=== PATIENT | male | born 1950 | race Caucasian/White ===

== ENCOUNTER → 2018-12-20 | Outpatient (REF) | payer OTHER | END | disposition home or self-care (01) | DRG 554 | LOC: DI 10:53 | PROVIDERS: ATTEND Podiatrist Foot & Ankle Surgery | DX: M13.871 Other specified arthritis, right ankle and foot (principal) ==

== ENCOUNTER 2019-07-26 18:41 | Emergency (ER) | payer OTHER ==
[~2019-07-26] VITALS: Ht 182.9 cm; Wt 91.0 kg
[2019-07-26] MEDS ORDERED: AMLODIPINE BESYL5 MG PO (18:53)
[2019-07-26] MEDS ORDERED: ENALAPRIL10 MG PO (18:53)
[2019-07-26] MEDS ORDERED: PROTONIX40 M2 PO (18:53)
[2019-07-26] MEDS ORDERED: RAPAFLO8 MG PO (18:53)
[2019-07-26] MEDS ORDERED: PROVENTIL108 MCG/AC IN (20:11)
[2019-07-26] MEDS ORDERED: KEFLEX500 MG PO (20:11)
[2019-07-26 20:23] LABS: URINE BILIRUBIN - DIPSTICK NEGATIVE (NEGATIVE); URINE BLOOD DIPSTICK NEGATIVE (NEGATIVE); URINE COLOR YELLOW; URINE GLUCOSE - DIPSTICK NEGATIVE (NEGATIVE); URINE KETONE NEGATIVE (NEGATIVE); URINE LEUK ESTERASE NEGATIVE (NEGATIVE); URINE NITRITE - DIPSTICK NEGATIVE (Negative); URINE PH 5.5 (4.5-8.0); URINE PROTEIN - DIPSTICK NEGATIVE (NEG-TRACE); URINE UROBILINOGEN - DIPSTICK 0.2 E.U./dL (0.2)
[2019-07-26 20:30] VITALS: BP 132/78
== END 2019-07-26 20:30 | disposition home or self-care (01) | DRG 153 ==
LOC: ED 18:41
DX: J02.0 Streptococcal pharyngitis (principal); J40 Bronchitis, not specified as acute or chronic; C91.10 Chronic lymphocytic leukemia of B-cell type not having achieved remission; I10 Essential (primary) hypertension; R73.03 Prediabetes

== ENCOUNTER 2019-07-31 10:22 | Observation (INO) | payer OTHER ==
[~2019-07-31] VITALS: Ht 182.9 cm; Wt 89.2 kg
[~2019-07-31 10:22] MED LIST: AMLODIPINE BESYL5 MG PO; ENALAPRIL10 MG PO; KEFLEX500 MG PO; PROTONIX40 M2 PO; PROVENTIL108 MCG/AC IN; RAPAFLO8 MG PO
--- NOTE | 2019-07-31 10:35 | NUR ---
PATIENT AMBULATED TO ROOM WITH STEADY GAIT AND PHYSICINA AT BEDSIDE FOR EVAL
[2019-07-31 11:05] LABS: HEMATOCRIT 45.8 % (39.0-50.0); HEMOGLOBIN 15.4 g/dl (14.0-18.0); MEAN CELL VOLUME 88.9 fL CALC (80.0-100.0); MEAN CORPUSCULAR HGB 29.9 pG CALC (26.0-32.0); MEAN CORPUSCULAR HGB CONC 33.6 g/L CALC (32.0-36.0); NEUT# 1.79 thou/uL (1.82-7.42); RED BLOOD COUNT 5.15 mill/uL (4.70-6.10); RED CELL DISTRI WIDTH 13.5 % (11.5-15.5)
--- NOTE | 2019-07-31 11:05 | NUR ---
PT RESTING ON STRETCHER; PT DENIES ANY ADDITIONAL SOB; VSS
[2019-07-31 11:25] LABS: ALBUMIN 4.5 g/dL (3.2-5.0); ALKALINE PHOSPHATASE 121 u/l (38-126); ANION GAP 13 (6-22 (CALC)); BILIRUBIN, TOTAL 0.9 mg/dL (0.0-1.4); BUN 12 mg/dL (8-23); BUN/CREATININE RATIO 16 (12-20 (CALC)); CARBON DIOXIDE 28 mmol/l (22-30); CHLORIDE 100 mmol/l (95-108); CREATININE 0.7 mg/dL (0.7-1.3); GFR > 60 ML/MIN (>=60 (CALC)); GFR FOR AFR.AMER. > 60 ML/MIN (>=60 (CALC)); POTASSIUM 4.5 mmol/l (3.5-5.1); SGOT/AST 57 u/l (19-48); SODIUM 137 mmol/l (137-146); TOTAL PROTEIN 7.3 g/dL (6.3-8.2)
--- NOTE | 2019-07-31 12:01 | NUR ---
PT RESTING ON STRETCHER; NO S/S OF SOB NOTED; BLANKET GIVEN; VSS; WILL CONTINUE TO MONITOR
--- NOTE | 2019-07-31 12:55 | NUR ---
PT RECIEVING BREATHING TX AT THIS TIME; PT TOLERATING WELL; IV ROCEPHIN INFUSING TO RAC; IN S/S OF INFLITRATION NOTED
--- NOTE | 2019-07-31 13:45 | NUR ---
PT RESTING ON STRETCHER; NO S/S OF DISTRESS NOTED; VSS
--- NOTE | 2019-07-31 14:26 | NUR ---
PT RESTING ON STRECHER; AWAITING ADMISSION ORDERS; PT ADVISED OF WAIT TIME
--- NOTE | 2019-07-31 14:58 | NUR ---
REPORT CALLED TO FELICITY MONTEIRO
--- NOTE | 2019-07-31 15:11 | NUR ---
PT TO MEDSURG VIA WC IN STABLE CONDITION
[2019-07-31 15:12] VITALS: BP 165/66
--- NOTE | 2019-07-31 15:12 | NUR ---
PT CAME FROM ER VIA WHEELCHAIR BY TARI. NOTIFIED PAPI COLES RE: PT BP 165/66 AND PT CONCERNS OF POC. SHE STATED WILL BE SEEING PT SOON.
--- NOTE | 2019-07-31 16:05 | NUR ---
ASSESSMENT DONE . PT IS SITTING IN THE SIDE OF THE BED. PT IS A&O X3 .TELE IN PLACE. LUNGS SOUND WHEEZE WITH A DRY COUGH. #20 RAC THAT APPEARS HEALTHY. SAFETY PRECAUTIONS REINFORCED AND CALL LIGHT IN REACH.
[2019-07-31 16:37] VITALS: BP 148/75
[2019-07-31 17:39] LABS: URINE BILIRUBIN - DIPSTICK NEGATIVE (NEGATIVE); URINE BLOOD DIPSTICK NEGATIVE (NEGATIVE); URINE COLOR YELLOW; URINE GLUCOSE - DIPSTICK NEGATIVE (NEGATIVE); URINE KETONE 15 mg/dL (NEGATIVE); URINE LEUK ESTERASE NEGATIVE (NEGATIVE); URINE NITRITE - DIPSTICK NEGATIVE (Negative); URINE PH 5.5 (4.5-8.0); URINE PROTEIN - DIPSTICK NEGATIVE (NEG-TRACE); URINE UROBILINOGEN - DIPSTICK 0.2 E.U./dL (0.2)
[2019-07-31 19:25] VITALS: BP 137/74
--- NOTE | 2019-07-31 19:30 | NUR ---
PATIENT RESTING IN BED AT THIS TIME-AWAKE ALERT AND ORIENTEDX3.PERSISTANT NON-PRODUCTIVE COUGH NOTED. TELE MONITOR IN PLACE. IV SITE TO RIGHT AC INTACT-REMAINS HEALTHY AT THIS TIME AND IS SALINE LOCK. NO COMPLAINTS AT THIS TIME. SAFETY PRECAUTIONS REINFORCED. CALL LIGHT IN REACH. WILL CONT TO MONITOR.
--- NOTE | 2019-07-31 22:08 | NUR ---
PATIENT APPEARS SLEEPING POSITIONED ON LEFT SIDE AT THIS TIME. RESP ARE EVEN AND UNLABORED AT THIS TIME. CALL LIGHT IN REACH. WILL CONT TO MONITOR.
[2019-08-01] VITALS (7 sets, daily range): BP systolic 115–151; BP diastolic 54–71
--- NOTE | 2019-08-01 00:28 | NUR ---
PATIENT RESTING IN BED AT THIS TIME-MEDICATED WITH SOLU-MEDROL ORDERED. OFFERED COUGH MED BUT PATIENT DECLINED AT THIS TIME. TELE MONITOR IN PLACE. SALINE LOCK TO RIGHT AC INTACT AND REMAINS HEALTHY AT THIS TIME. CALL LIGHT IN REACH. WILL CONT TO MONITOR.
--- NOTE | 2019-08-01 04:02 | NUR ---
PATIENT RESTING IN BED AT THIS TIME-APPEARS SLEEPING WITH EYES CLOSED. RESP ARE EVEN AND UNLABORED. TELE MONITOR IN PLACE. CALL LIGHT IN REACH. WILL CONT TO MONITOR.
[2019-08-01 04:45] LABS: HEMOGLOBIN 14.5 g/dl (14.0-18.0); IMMATURE GRANULOCYTES 0.2 % (0.0-5.0); MEAN CELL VOLUME 88.3 fL CALC (80.0-100.0); MEAN CORPUSCULAR HGB 29.8 pG CALC (26.0-32.0); MEAN CORPUSCULAR HGB CONC 33.7 g/L CALC (32.0-36.0); NEUT# 2.13 thou/uL (1.82-7.42); RED BLOOD COUNT 4.87 mill/uL (4.70-6.10); RED CELL DISTRI WIDTH 13.3 % (11.5-15.5)
[2019-08-01 05:07] LABS: ANION GAP 14 (6-22 (CALC)); BUN 15 mg/dL (8-23); BUN/CREATININE RATIO 21 (12-20 (CALC)); CARBON DIOXIDE 26 mmol/l (22-30); CHLORIDE 99 mmol/l (95-108); CREATININE 0.7 mg/dL (0.7-1.3); GFR > 60 ML/MIN (>=60 (CALC)); GFR FOR AFR.AMER. > 60 ML/MIN (>=60 (CALC)); POTASSIUM 4.3 mmol/l (3.5-5.1); SODIUM 135 mmol/l (137-146)
--- NOTE | 2019-08-01 07:05 | NUR ---
REPORT RECEIVED FROM FELICITY KEYS;PT RESTING IN HIGH FOWLERS POSITION WATCHING TV, INTRODUCED SELF TO PT AND POC DISCUSSED;RESPIRATIONS EVEN AND UNLABORED ON RA;PT DENIES ANY CURRENT PAIN OR NEEDS;TELE MONITORING IN PLACE;PT INSTRUCTED TO CALL FOR ASSISTANCE IF NEEDED;FALL PRECAUTIONS IN PLACE WITH BED IN THE LOWEST POSITION AND CALL LIGHT IN REACH;WILL CONTINUE TO MONITOR
--- NOTE | 2019-08-01 08:55 | NUR ---
PT RESTING IN SEMI FOWLERS POSITION, A&O X3;VS OBTAINED AND ASSESSMENT COMPLETED;PT DENIES ANY CURRENT PAIN OR DISCOMFORTS,PAIN SCALE AND REPORTING EDUCATED;RESPIRATIONS EVEN AND UNLABORED ON RA, CLEAR/DIMINISHED LUNG SOUNDS NOTED WITH NON-PRODUCTIVE COUGH AT TIMES;PT OFFERED PRN ROBITUSSIN BUT PT DENIES AT THIS TIME;ABDOMEN SOFT ON PALPATION AND ACTIVE IN ALL 4 QUADRANTS;STRONG PEDAL PULSES;SKIN INTACT;TELE MONITORING IN PLACE;#20G TO RAC FLUSHED AND PATENT,SITE APPEARS HEALTHY;PT DENIES ANY ADDITIONAL NEEDS AT THIS TIME AND IS ENCOURAGED TO CALL FOR ASSISTANCE IF NEEDED;CALL LIGHT IN REACH;WILL CONTINUE TO MONITOR
--- NOTE | 2019-08-01 10:03 | NUR ---
ADORE CONNORS,ANRP AT BEDSIDE DISCUSSING POC.
--- NOTE | 2019-08-01 10:10 | NUR ---
PT REQUESTS COUGH MEDICATION, PT MEDICATED WITH PRN ROBITUSSIN AC 10ML PO AT THIS TIME;WILL MONITOR FOR EFFECTIVENESS
--- NOTE | 2019-08-01 11:35 | NUR ---
PT OOB RESTING IN RECLINER EATING LUNCH;RESPIRATIONS REMAIN EVEN AND UNLABORED ON RA;PT DENIES ANY CURRENT PAIN OR NEEDS;TELE MONITORING IN PLACE;ASSESSMENT REMAINS UNCHANGED AT THIS TIME;ENCOURAGED TO CALL FOR ASSISTANCE IF NEEDED;CALL LIGHT IN REACH;WILL CONTINUE TO MONITOR
--- NOTE | 2019-08-01 11:47 | NUR ---
AT BEDSIDE DISCUSSING POC.
--- NOTE | 2019-08-01 16:10 | NUR ---
PT RESTING IN SEMI FOWLERS POSITION;RESPIRATIONS EVEN AND UNLABORED ON RA;PT DENIES ANY CURRENT PAIN OR DISCOMFORTS;TELE MONITORING IN PLACE;IV SITE TO [facility] PATENT;ASSESSMENT REMAINS UNCHANGED AT THIS TIME;ENCOURAGED TO CALL FOR ASSISTANCE IF NEEDED;CALL LIGHT IN REACH;WILL CONTINUE TO MONITOR
--- NOTE | 2019-08-01 17:00 | NUR ---
ADORE CONNORS,ANRP NOTIFIED OF INCREASING BLOOD SUGAR OF 205. NO NEW ORDERS RECEIVED AT THIS TIME;WILL CONTINUE TO MONITOR
--- NOTE | 2019-08-01 19:25 | NUR ---
PATIENT IS UP AND ABOUT IN THE ROOM-STEADY ON HIS FEET. PATIENT IS ALERT ANDORIENTEDX3. CONT TO HAVE NON-PRODUCTIVE COUGH. TELE MONITOR IN PLACE. IV SITE TO RIGHT AC INTACT AND REMAINS HEALTHY AT THIS TIME. LUNGS ARE CLEAR AND DIMINISHED IN THE BASES. ABD WITH ACTIVE BS. NO PERIPHERAL EDEMA NOTED. SAFETY PRECAUTIONS REINFORCED. CALL LIGHT IN REACH. WILL CONT TO MONITOR.
--- NOTE | 2019-08-01 21:52 | NUR ---
PATIENT RESTING IN BED-MEDICATED WITH ROBITUSSIN AC FOR NON-PRODUCTIVE COUGH. NO FUSRTHER NEEDS AT THIS TIME. TELE MONITOR IN PLACE. CALL LIGHT IN REACH. WILL CONT TO MONITOR.
--- NOTE | 2019-08-02 01:16 | NUR ---
RECEIVED CALL FROM BRITTANY BINGHAM IN ER-STATES THAT PATIENT HAS HAD RYTHM CHANGE FROM SB TO JUNCTIONAL RYTHM-50. CHECK ON PATIENT RESTING IN BED WITH NO COMPLAINTS AT THIS TIME. STAT EKG WAS DONE AND SHOWS SB-57. WILL CONT TO RAJNI.
--- NOTE | 2019-08-02 03:35 | NUR ---
APPEARS SLEEPING AT THIS TIME-EYES CLOSED, HOB ELEVATED. RESP ARE EVEN AND UNLABORED. TELE MONITOR IN PLACE. CALL LIGHT IN REACH. WILL CONT TO MONITOR.
[2019-08-02 03:50] VITALS: BP 128/59
[2019-08-02 05:07] LABS: HEMATOCRIT 40.7 % (39.0-50.0); HEMOGLOBIN 13.7 g/dl (14.0-18.0); IMMATURE GRANULOCYTES 0.4 % (0.0-5.0); MEAN CELL VOLUME 88.9 fL CALC (80.0-100.0); MEAN CORPUSCULAR HGB 29.9 pG CALC (26.0-32.0); MEAN CORPUSCULAR HGB CONC 33.7 g/L CALC (32.0-36.0); NEUT# 6.73 thou/uL (1.82-7.42); RED BLOOD COUNT 4.58 mill/uL (4.70-6.10); RED CELL DISTRI WIDTH 13.4 % (11.5-15.5)
--- NOTE | 2019-08-02 07:05 | NUR ---
REPORT RECEIVED FROM FELICITY KEYS;PT OOB RESTING IN RECLINER WATCHING TV;INTRODUCED SELF TO PT AND POC DISCUSSED;RESPIRATIONS EVEN AND UNLABORED ON RA;PT DENIES ANY CURRENT PAIN OR DISCOMFORTS;TELE MONITORING IN PLACE;PT DENIES ANY ADDITIONAL NEEDS AT THIS TIME AND IS ENCOURAGED TO CALL FOR ASSISTANCE IF NEEDED;FALL PRECAUTIONS IN PLACE WITH CALL LIGHT IN REACH;WILL CONTINUE TO MONITOR
--- NOTE | 2019-08-02 08:40 | NUR ---
PT OOB RESTING IN RECLINER AFTER A SHOWER,A&O X3;VS OBTAINED AND ASSESSMENT COMPLETED;PT DENIES ANY CURRENT PAIN OR DISCOMFORTS,PAIN SCALE AND REPORTING EDUCATED;RESPIRATIONS EVEN AND UNLABORED ON RA,CLEAR LUNG SOUNDS NOTED;NON-PRODUCTIVE COUGH AT TIMES, PT DENIES THE NEED FOR COUGH MEDICATION;ABDOMEN SOFT ON PALPATION AND ACTIVE IN ALL 4 QUADRANTS;STRONG PEDAL PULSES;SKIN INTACT;TELE MONITORING IN PLACE;#20G TO RAC FLUSHED AND PATENT,SITE APPEARS HEALTHY;PT DENIES ANY ADDITIONAL NEEDS AND IS ENCOURAGED TO CALL FOR ASSISTANCE IF NEEDED;CALL LIGHT IN REACH;WILL CONTINUE TO MONITOR
[2019-08-02 08:44] VITALS: BP 135/70
--- NOTE | 2019-08-02 09:24 | NUR ---
RT AT BEDSIDE PROVIDED BREATHING TREATMENT
--- NOTE | 2019-08-02 10:59 | NUR ---
PT MEDICATED WITH PRN ROBITUSSIN AC 10ML FOR NON-PRODUCTIVE COUGH.WILL CONTINUE TO MONITOR
[2019-08-02 11:12] VITALS: BP 127/72
--- NOTE | 2019-08-02 11:25 | NUR ---
ADORE CONNORS,ANRP AT BEDSIDE DISCUSSING POC.
--- NOTE | 2019-08-02 11:40 | NUR ---
PT OOB RESTING IN RECLINER;RESPIRATIONS EVEN AND UNLABORED ON RA;PT DENIES ANY CURRENT PAIN OR DISCOMFORTS;TELE MONITORING IN PLACE;SOLUMEDROL ADMINISTERED PER ORDER;PT ENCOURAGED TO CALL FOR ASSISTANCE IF NEEDED;CALL LIGHT IN REACH;WILL CONTINUE TO MONITOR
--- NOTE | 2019-08-02 11:42 | NUR ---
AT BEDSIDE DISCUSSING POC INCLUDING PLANS TO DISCHARGE HOME, PT VERBALIZES UNDERSTANDING.
[2019-08-02] MEDS ORDERED: BIOTUSSIN PO (11:45)
[2019-08-02] MEDS ORDERED: ZITHROMAX250 MG PO (11:45)
[2019-08-02] MEDS ORDERED: PREDNISONE10 MG PO (11:45)
[2019-08-02] MEDS ORDERED: PROVENTIL108 MCG/AC IN (11:47)
--- NOTE | 2019-08-02 13:08 | NUR ---
ALL DISCHARGE INSTRUCTIONS PROVIDED AT THIS TIME,ALL QUESTIONS ANSWERED;PT PROVIDED WITH PRESCRIPTIONS FOR ZITHRO, INHALER,PREDNISONE AND ROBITUSSIN AC.PT DENIES ANY ADDITIONAL NEEDS AT THIS TIME;WHEEL CHAIR TO BE PROVIDED FOR DISCHARGE HOME;AWAITING FAMILY FOR TRANSPORTATION.
--- NOTE | 2019-08-02 13:35 | NUR ---
Discharge instructions given. Patient verbalizes understanding of same. Discharged in stable condition via Wheelchair to Home with . All belongings sent with pt. Pt transported to lobby via wheelchair in stable condition for discharge home.pt to transport himself home via car.
== END 2019-08-02 13:35 | disposition home or self-care (01) | DRG 202 ==
LOC: ED 10:22 → ED-I 10:34 → ED 13:16 → MS2 13:17
PROVIDERS: Nurse Practitioner Family; ADMIT Internal Medicine; ATTEND Internal Medicine
DX: J45.901 Unspecified asthma with (acute) exacerbation (principal); J02.0 Streptococcal pharyngitis; C91.11 Chronic lymphocytic leukemia of B-cell type in remission; I10 Essential (primary) hypertension; Z72.89 Other problems related to lifestyle
CPT/HCPCS: G0378

== ENCOUNTER 2022-09-29 03:56 | Emergency (ER) | payer MEDICARE, OTHER ==
[~2022-09-29] VITALS: Ht 182.9 cm; Wt 91.0 kg
[~2022-09-29 03:56] MED LIST changes: +BIOTUSSIN PO; +PREDNISONE10 MG PO; +ZITHROMAX250 MG PO
[2022-09-29] MEDS ORDERED: ALFUZOSIN HCL E10 MG PO (04:33)
[2022-09-29] MEDS ORDERED: FINASTERIDE5 MG PO (04:34)
[2022-09-29] MEDS ORDERED: PRAVASTATIN20 MG PO (04:34)
[2022-09-29] MEDS ORDERED: VITAMIN D2000 UNI1 PO (04:35)
[2022-09-29 04:37] LABS: HEMATOCRIT 42.4 % (39.0-50.0); HEMOGLOBIN 14.2 g/dl (14.0-18.0); IMMATURE GRANULOCYTES 0.2 % (0.0-5.0); MEAN CELL VOLUME 91.6 fL CALC (80.0-100.0); MEAN CORPUSCULAR HGB 30.7 pG CALC (26.0-32.0); MEAN CORPUSCULAR HGB CONC 33.5 g/dL CAL (32.0-36.0); NEUT# 6.02 thou/uL (1.82-7.42); RED BLOOD COUNT 4.63 mill/uL (4.70-6.10); RED CELL DISTRI WIDTH 13.7 % (11.5-15.5)
[2022-09-29 04:52] LABS: ALBUMIN 4.3 g/dL (3.2-5.0); ALKALINE PHOSPHATASE 76 u/l (38-126); ANION GAP 11 (6-22 (CALC)); BILIRUBIN, TOTAL 0.6 mg/dL (0.0-1.4); BUN 16 mg/dL (8-23); BUN/CREATININE RATIO 20 (12-20 (CALC)); CARBON DIOXIDE 31 mmol/l (22-30); CHLORIDE 103 mmol/l (95-108); CREATININE 0.8 mg/dL (0.7-1.3); GFR FOR AFR.AMER. > 60 ML/MIN (>=60 (CALC)); GFR OTHER RACES > 60 ML/MIN (>=60 (CALC)); POTASSIUM 4.2 mmol/l (3.5-5.1); SGOT/AST 88 u/l (19-48); SODIUM 140 mmol/l (137-146); TOTAL PROTEIN 7.1 g/dL (6.3-8.2)
[2022-09-29 05:37] LABS: URINE BILIRUBIN - DIPSTICK NEGATIVE (NEGATIVE); URINE BLOOD DIPSTICK NEGATIVE (NEGATIVE); URINE COLOR YELLOW; URINE GLUCOSE - DIPSTICK NEGATIVE (NEGATIVE); URINE KETONE NEGATIVE (NEGATIVE); URINE LEUK ESTERASE NEGATIVE (NEGATIVE); URINE PROTEIN - DIPSTICK NEGATIVE (NEG-TRACE)
[2022-09-29 05:47] LABS: URINE NITRITE - DIPSTICK NEGATIVE (Negative)
[2022-09-29] MEDS ORDERED: KEFLEX500 MG PO (06:59)
[2022-09-29] MEDS ORDERED: ROBITUSSIN AC10 ML PO (06:59)
[2022-09-29 07:03] VITALS: BP 165/75
== END 2022-09-29 07:10 | disposition home or self-care (01) ==
LOC: ED 03:56
PROVIDERS: Emergency Medicine
DX: J06.9 Acute upper respiratory infection, unspecified (principal); I10 Essential (primary) hypertension; C91.10 Chronic lymphocytic leukemia of B-cell type not having achieved remission; Z20.822 Contact with and (suspected) exposure to COVID-19